=== PATIENT | male | born 1945 ===

== ENCOUNTER 2019-11-21 19:30 | Inpatient (IN) | payer OTHER ==
[~2019-11-21] VITALS: Ht 177.8 cm; Wt 135.0 kg
[2019-11-21] MEDS ORDERED: SODIUM CHLORIDE 0.9% 1,000 ML IV ONE (19:45)
[2019-11-21] MEDS ORDERED: ACETAMINOPHEN 120 MG RECTAL SUPPOSITORY PR ONE (19:45)
[2019-11-21] MEDS ORDERED: PIPERACILLIN/TAZO 3.375 GM/D5W 50 ML IV ONE (20:00)
[2019-11-21 20:40] LABS: BASOPHILS % (AUTO) 0.3 % (0.0-2.0); EOSINOPHILS % (AUTO) 0 % (1.0-6.0); HEMATOCRIT 40.9 % (41-53); HEMOGLOBIN 12.7 g/dL (13.5-17.5); LYMPHOCYTES # (AUTO) 1.3 K/uL (1.0-4.8); LYMPHOCYTES % (AUTO) 10.1 % (22.0-44.0); MEAN CORPUSCULAR HEMOGLOBIN 29.2 pg (26.0-34.0); MEAN CORPUSCULAR VOLUME 94 fL (80-100); MONOCYTES % (AUTO) 7.4 % (2.0-9.0); NEUTROPHILS # (AUTO) 10.8 K/uL (1.8-7.7); NEUTROPHILS % (AUTO) 82.2 % (40.0-70.0); PLATELET COUNT (AUTO) 216 K/uL (150-450); RED BLOOD CELL COUNT(AUTO) 4.34 MIL/uL (4.50-5.90); RED CELL DISTRIBUTION WIDTH 18.5 % (11.5-14.5)
[2019-11-21 20:44] LABS: ANION GAP 14 mmol/L (8-16); CALCIUM, TOTAL 9.7 mg/dL (8.8-10.5); CARBON DIOXIDE 17 mmol/L (22-29); CHLORIDE 113 mmol/L (98-107); CREATININE 3.48 mg/dL (0.60-1.30); GLOMERULAR FILTR. RATE CALC 17 mL/min (>60); GLUCOSE,RANDOM 195 mg/dL (70-110); POTASSIUM 3.5 mmol/L (3.5-5.1); SODIUM SERUM 144 mmol/L (136-145); UREA NITROGEN, BLOOD 71 mg/dL (7-18)
[2019-11-21 20:54] LABS: TROPONIN I 0.52 ng/mL (0.00-0.05)
[2019-11-21 21:00] LABS: INR 1.2 (0.9-1.1)
[2019-11-21 21:08] LABS: ALANINE AMINOTRANSFERASE 59 U/L (12-78); ALBUMIN 2.9 g/dL (3.4-5.0); ALKALINE PHOSPHATASE 56 U/L (46-116); ASPARTATE AMINOTRANSFERASE 45 U/L (15-37); BILIRUBIN,TOTAL 0.5 mg/dL (0.1-1.0); C-REACTIVE PROTEIN QUANT 4.94 mg/dL (0.00-0.30); CREATINE KINASE, TOTAL ONLY 765 U/L (39-308); FERRITIN 280 ng/mL (26-388); LACTATE DEHYDROGENASE 373 U/L (85-227); LIPASE 916 U/L (73-393); TOTAL PROTEIN, SERUM 7.6 g/dL (6.4-8.2)
[2019-11-21] MEDS ORDERED: DILTIAZEM HCL 5 MG/ML 5 ML VIAL IVP ONE (21:15)
[2019-11-21 21:30] LABS: GLUCOSE,POINT OF CARE 169 MG/DL (70-110)
[2019-11-21 21:33] LABS: LACTIC ACID 3.8 mmol/L (0.4-2.0)
[2019-11-21 21:41] LABS: B-TYPE NATRIURETIC PEPTIDE 801 pg/mL (0-100)
[2019-11-21 21:49] LABS: APPEARANCE,URINE CLOUDY (CLEAR); BILIRUBIN,URINE NEGATIVE (NEGATIVE); GLUCOSE, URINE (UA) NEGATIVE (NEGATIVE); KETONES,URINE NEGATIVE (NEGATIVE); LEUKOCYTE ESTERASE ,URINE MODERATE (NEGATIVE); NITRATE,URINE NEGATIVE (NEGATIVE); OCCULT BLOOD,URINE TRACE (NEGATIVE); PH,URINE 5.5 (5.0-8.0); PROTEIN,URINE POS 1+ (NEGATIVE); UROBILINOGEN,URINE 0.2 mg/dL (<=1.0)
[2019-11-21 21:54] LABS: AMPHET/METH SCREEN,URINE NEGATIVE (NEGATIVE); BARBITURATE SCREEN, URINE NEGATIVE (NEGATIVE); BENZODIAZEPINES SCREEN,URINE NEGATIVE (NEGATIVE); CANNABINOID SCREEN,URINE NEGATIVE (NEGATIVE); COCAINE SCREEN,URINE NEGATIVE (NEGATIVE); METHADONE SCREEN, URINE NEGATIVE (NEGATIVE); OPIATE SCREEN,URINE POSITIVE (NEGATIVE)
[2019-11-21] MEDS ORDERED: ASPIRIN 325 MG TABLET PO ONE (22:00)
[2019-11-21 22:02] LABS: D-DIMER > 35.20 mg/L FEU (0.00-0.50)
[2019-11-21] MEDS: DIGOXIN 250 MCG/ML 2 ML AMP IVP ONE ×2 (22:03→22:06)
[2019-11-21 22:05] LABS: PHENCYCLIDINE SCREEN,URINE NEGATIVE (NEGATIVE)
[2019-11-21 22:12] LABS: INFLUENZA TYPE A NEGATIVE FOR TYPE A (NEGATIVE); INFLUENZA TYPE B NEGATIVE FOR TYPE B (NEGATIVE)
[2019-11-21 22:14] LABS: BACTERIA,URINE Many /HPF (None Seen); RBC,URINE 0-2 /HPF (0-2)
[2019-11-21 22:15] LABS: SQUAMOUS EPITHELIAL CELL,UR None Seen /LPF (None Seen)
[2019-11-21] MEDS ORDERED: 0.9% SODIUM CHLORIDE 10 ML SYRINGE IVP PRN ×2 (22:15→23:00)
[2019-11-21] MEDS ORDERED: OXYGEN THERAPY IH SCH (22:15)
[2019-11-21] MEDS ORDERED: ONDANSETRON HCL 4 MG/2 ML VIAL IVP PRN ×2 (22:15→23:00)
[2019-11-21] MEDS ORDERED: ACETAMINOPHEN 325 MG TABLET PO PRN (22:15)
[2019-11-21] MEDS ORDERED: HEPARIN SODIUM 25000 UNITS/D5W 250 ML IV PRN (22:47)
[2019-11-21] MEDS ORDERED: HEPARIN SODIUM,PORCINE 5,000 UNITS/ML VIAL IVP PRN ×2 (23:00)
[2019-11-21] MEDS ORDERED: HEPARIN SODIUM,PORCINE 5,000 UNITS/ML VIAL IVP ONE (23:00)
[2019-11-21] MEDS ORDERED: SODIUM CHLORIDE 0.45% 1,000 ML IV ONE (23:00)
[2019-11-21] MEDS ORDERED: ASPIRIN 300 MG RECTAL SUPPOSITORY PR ONE (23:15)
[2019-11-21] MEDS: FAMOTIDINE 10 MG/ML 2 ML VIAL IVP SCH (23:15)
[2019-11-22] VITALS (8 sets, daily range): BP systolic 108–124; BP diastolic 46–71
[2019-11-22] MEDS: SODIUM CHLORIDE 0.45% 1,000 ML IV SCH ×3 (01:41→18:03)
[2019-11-22] MEDS: DILTIAZEM HCL 125 MG in DEXTROSE 5%-WATER 100 ML IV PRN ×3 (01:42→17:30)
[2019-11-22] MEDS ORDERED: DEXTROSE 50%-WATER 25 GM/50 ML SYRINGE IVP PRN (05:30)
[2019-11-22] MEDS ORDERED: INSULIN LISPRO 100 UNITS/ML SQ PRN (05:30)
[2019-11-22] MEDS ORDERED: SODIUM CHLORIDE 0.45% 1,000 ML IV SCH (05:30)
[2019-11-22] MEDS: PIPERACILLIN SODIUM/TAZOBACTAM 2.25 GM in DEXTROSE 5%-WATER 50 ML IV SCH ×3 (05:38→21:25)
[2019-11-22 05:41] LABS: BASOPHILS % (AUTO) 0.3 % (0.0-2.0); EOSINOPHILS % (AUTO) 0 % (1.0-6.0); HEMATOCRIT 36.5 % (41-53); HEMOGLOBIN 11.2 g/dL (13.5-17.5); LYMPHOCYTES # (AUTO) 1.4 K/uL (1.0-4.8); LYMPHOCYTES % (AUTO) 10.7 % (22.0-44.0); MEAN CORPUSCULAR HEMOGLOBIN 29.1 pg (26.0-34.0); MEAN CORPUSCULAR HGB CONC 30.7 G/dL (31.0-37.0); MEAN CORPUSCULAR VOLUME 95 fL (80-100); MONOCYTES # (AUTO) 0.8 K/uL (0.1-1.0); MONOCYTES % (AUTO) 6.2 % (2.0-9.0); NEUTROPHILS # (AUTO) 10.7 K/uL (1.8-7.7); NEUTROPHILS % (AUTO) 82.8 % (40.0-70.0); PLATELET COUNT (AUTO) 157 K/uL (150-450); RED BLOOD CELL COUNT(AUTO) 3.86 MIL/uL (4.50-5.90); RED CELL DISTRIBUTION WIDTH 18.4 % (11.5-14.5)
[2019-11-22] MEDS ORDERED: VANCOMYCIN HCL 1 GM/D5% WATER 200 ML IV PRN (05:45)
[2019-11-22] MEDS ORDERED: METOPROLOL TARTRATE 5 MG/5 ML VIAL IVP ONE (05:45)
[2019-11-22] MEDS ORDERED: VANCOMYCIN HCL 1.5 GM in DEXTROSE 5%-WATER 250 ML IV ONE (06:00)
[2019-11-22 06:47] LABS: CALCIUM, TOTAL 8.7 mg/dL (8.8-10.5); CREATININE 2.85 mg/dL (0.60-1.30); POTASSIUM 3.2 mmol/L (3.5-5.1)
[2019-11-22 07:00] LABS: GLUCOSE,POINT OF CARE 141 MG/DL (70-110)
[2019-11-22] MEDS: FAMOTIDINE 10 MG/ML 2 ML VIAL IVP SCH (08:15)
[2019-11-22] MEDS ORDERED: POTASSIUM CHLORIDE 10% 40 MEQ/30 ML LIQUID UDCUP PO ONE (11:15)
[2019-11-22] MEDS ORDERED: DIGOXIN 250 MCG/ML 2 ML AMP IVP ONE ×2 (11:15→15:30)
[2019-11-22 13:03] LABS: GLUCOSE,POINT OF CARE 122 MG/DL (70-110)
[2019-11-22] MEDS ORDERED: HEPARIN SODIUM 25000 UNITS/D5W 250 ML IV PRN (13:34)
[2019-11-22] MEDS ORDERED: HEPARIN SODIUM,PORCINE 5,000 UNITS/ML VIAL IVP PRN ×2 (13:45)
[2019-11-22] MEDS ORDERED: MORPHINE SULFATE 2 MG/ML SYRINGE IVP PRN (15:00)
[2019-11-22 17:21] LABS: CALCIUM, TOTAL 8.8 mg/dL (8.8-10.5); CREATININE 2.42 mg/dL (0.60-1.30); POTASSIUM 3.2 mmol/L (3.5-5.1)
[2019-11-22 17:25] LABS: MAGNESIUM 1.7 mg/dL (1.80-2.40); PHOSPHORUS 3.4 mg/dL (2.5-4.9)
[2019-11-22 17:51] LABS: GLUCOSE,POINT OF CARE 92 MG/DL (70-110)
[2019-11-22] MEDS: MORPHINE SULFATE 2 MG/ML SYRINGE IVP PRN ×2 (18:04→22:23)
[2019-11-22] MEDS: POTASSIUM CHL 10 MEQ/WATER 50 ML IV SCH ×2 (21:23→22:23)
[2019-11-22 23:47] LABS: GLUCOSE,POINT OF CARE 83 MG/DL (70-110)
[2019-11-23] VITALS (8 sets, daily range): BP systolic 107–142; BP diastolic 53–71
[2019-11-23 04:34] LABS: BASOPHILS % (AUTO) 0.3 % (0.0-2.0); EOSINOPHILS % (AUTO) 0.9 % (1.0-6.0); HEMATOCRIT 32.2 % (41-53); HEMOGLOBIN 10.4 g/dL (13.5-17.5); LYMPHOCYTES % (AUTO) 10.3 % (22.0-44.0); MEAN CORPUSCULAR HEMOGLOBIN 30.6 pg (26.0-34.0); MEAN CORPUSCULAR HGB CONC 32.5 G/dL (31.0-37.0); MEAN CORPUSCULAR VOLUME 94 fL (80-100); MONOCYTES # (AUTO) 0.6 K/uL (0.1-1.0); MONOCYTES % (AUTO) 6.4 % (2.0-9.0); NEUTROPHILS # (AUTO) 7.8 K/uL (1.8-7.7); NEUTROPHILS % (AUTO) 82.1 % (40.0-70.0); PLATELET COUNT (AUTO) 117 K/uL (150-450); RED BLOOD CELL COUNT(AUTO) 3.42 MIL/uL (4.50-5.90); RED CELL DISTRIBUTION WIDTH 17.7 % (11.5-14.5)
[2019-11-23 05:54] LABS: CALCIUM, TOTAL 8.1 mg/dL (8.8-10.5); CREATININE 1.77 mg/dL (0.60-1.30); MAGNESIUM 1.5 mg/dL (1.80-2.40); POTASSIUM 3.1 mmol/L (3.5-5.1)
[2019-11-23] MEDS: MORPHINE SULFATE 2 MG/ML SYRINGE IVP PRN ×3 (06:20→15:21)
[2019-11-23] MEDS: PIPERACILLIN SODIUM/TAZOBACTAM 2.25 GM in DEXTROSE 5%-WATER 50 ML IV SCH ×2 (06:20→13:00)
[2019-11-23] MEDS: DILTIAZEM HCL 125 MG in DEXTROSE 5%-WATER 100 ML IV PRN (06:26)
[2019-11-23] MEDS: SODIUM CHLORIDE 0.45% 1,000 ML IV SCH (06:44)
[2019-11-23] MEDS ORDERED: MAGNESIUM SULFATE 1 GM in DEXTROSE 5%-WATER 50 ML IV ONE (07:00)
[2019-11-23] MEDS ORDERED: VANCOMYCIN HCL 1 GM/D5% WATER 200 ML IV ONE (08:00)
[2019-11-23 08:07] LABS: GLUCOSE,POINT OF CARE 106 MG/DL (70-110)
[2019-11-23] MEDS: POTASSIUM CHL 10 MEQ/WATER 50 ML IV SCH ×4 (08:11→09:34)
[2019-11-23] MEDS: FAMOTIDINE 10 MG/ML 2 ML VIAL IVP SCH (08:11)
[2019-11-23] MEDS ORDERED: POTASSIUM CHLORIDE 20 MEQ ER TABLET PO ONE (08:15)
[2019-11-23] MEDS ORDERED: MAGNESIUM SULFATE 3 GM in DEXTROSE 5%-WATER 100 ML IV ONE (08:15)
[2019-11-23] MEDS ORDERED: MAGNESIUM SULFATE 2 GM/WATER 50 ML IV ONE (08:45)
[2019-11-23] MEDS ORDERED: SILVER SULFADIAZINE 1% 25 GM CREAM TP SCH (09:00)
[2019-11-23] MEDS ORDERED: MICONAZOLE NITRATE 2% 142 GM CREAM [BAZA] TP SCH (09:00)
[2019-11-23 12:26] LABS: GLUCOSE,POINT OF CARE 98 MG/DL (70-110)
[2019-11-23 15:38] LABS: CALCIUM, TOTAL 8.2 mg/dL (8.8-10.5); CREATININE 1.42 mg/dL (0.60-1.30); MAGNESIUM 1.8 mg/dL (1.80-2.40); PHOSPHORUS 2.7 mg/dL (2.5-4.9); POTASSIUM 3.8 mmol/L (3.5-5.1)
[2019-11-23] MEDS ORDERED: HEPARIN SODIUM 25000 UNITS/D5W 250 ML IV PRN (16:11)
[2019-11-23] MEDS ORDERED: HEPARIN SODIUM,PORCINE 5,000 UNITS/ML VIAL IVP PRN ×2 (16:15)
[2019-11-23] MEDS ORDERED: HEPARIN SODIUM,PORCINE 5,000 UNITS/ML VIAL IVP ONE (16:45)
[2019-11-23] MEDS ORDERED: RIVAROXABAN 15 MG TABLET PO SCH (17:30)
[2019-11-23 18:31] LABS: GLUCOSE,POINT OF CARE 87 MG/DL (70-110)
== END 2019-11-23 19:35 | disposition short-term general hospital (02) | DRG 871 ==
LOC: EMS 19:30 → EDBD 19:30 → ICU 22:20
PROVIDERS: ADMIT Internal Medicine; ATTEND Internal Medicine
PROC: 05HY33Z Insertion of Infusion Device into Upper Vein, Percutaneous Approach (ICD-10-PCS; principal; 2019-11-22)
PROC: B54MZZA Ultrasonography of Right Upper Extremity Veins, Guidance (ICD-10-PCS; 2019-11-22)
DX: A41.9 Sepsis, unspecified organism (principal); G92 Toxic encephalopathy; E43 Unspecified severe protein-calorie malnutrition; Z68.41 Body mass index [BMI] 40.0-44.9, adult; I48.20 Chronic atrial fibrillation, unspecified; N39.0 Urinary tract infection, site not specified; I13.0 Hypertensive heart and chronic kidney disease with heart failure and stage 1 through stage 4 chronic kidney disease, or unspecified chronic kidney disease; N17.9 Acute kidney failure, unspecified; R65.20 Severe sepsis without septic shock; D64.9 Anemia, unspecified; I48.91 Unspecified atrial fibrillation; N18.9 Chronic kidney disease, unspecified; E87.6 Hypokalemia; I50.9 Heart failure, unspecified; L24.9 Irritant contact dermatitis, unspecified cause; M48.07 Spinal stenosis, lumbosacral region; R41.0 Disorientation, unspecified; Z20.828 Contact with and (suspected) exposure to other viral communicable diseases; Z96.651 Presence of right artificial knee joint; N20.0 Calculus of kidney; E83.42 Hypomagnesemia; Z79.01 Long term (current) use of anticoagulants; Z86.711 Personal history of pulmonary embolism; Z86.718 Personal history of other venous thrombosis and embolism
CPT/HCPCS: 36245; 36569; 51702; 70450; 71250; 72125; 72192; 74150; 76770; 76937; 82728; 83605; 83615; 83735; 84100; 84145; 85379; 86140; 87040; 87081; 87086; 87426; 87804; 92526; 92610; 93005; 93308; 93970; 97167; 97535; 99291; 99292; G0378; G0480; J1160; J1644; J2270; J2543; J3370; J3475; J3480; J3490; J7030; J7060